=== PATIENT | female | born 1950 | race Caucasian/White ===

== ENCOUNTER 2019-04-06 23:23 | Inpatient (IN) | payer MEDICARE ==
[2019-04-07 00:17] LABS: #Lymphocytes 0.7 thou/uL (1.20-3.40); #Monocytes 0.8 thou/uL (0.11-0.59); #Neutrophils 10.9 thou/uL (1.40-6.50); %Basophils 0.4 % (0.0-1.0); %Eosinophils 0.2 % (0.0-10.0); %Lymphocytes 5.7 % (21.0-51.0); %Neutrophils 87.7 % (42.0-75.0); Hemoglobin 14.9 g/dL (12.0-16.0); Mean Corpuscular HGB CONC 31.8 g/dL (32.0-36.0); Mean Corpuscular Hemoglobin 30.1 pg (27.0-31.0); Mean Corpuscular Volume 94.6 fL (78.0-98.0); Mean Platelet Volume 8.9 fL (7.4-10.4); Platelet Count 223 thou/uL (130-400); RBC Distribution Width 13.7 % (11.5-14.5); Red Blood Cell (RBC) Count 4.96 mill/uL (4.20-5.40); White Blood Cell (WBC) Count 12.5 thou/uL (4.8-10.8)
[2019-04-07 00:48] LABS: ALT (SGPT) 18 U/L (8-55); AST (SGOT) 26 U/L (5-34); Albumin 4.7 g/dL (3.4-4.8); Alkaline Phosphatase 125 U/L (40-150); Anion Gap 29 mmol/L (10-20); BUN (Urea Nitrogen) 36 mg/dL (9.8-20.1); Bilirubin, Total 0.6 mg/dL (0.2-1.2); Calc. Creatinine Clearance 0 mL/min (70-130); Carbon Dioxide 17 mmol/L (23-31); Chloride 85 mmol/L (98-107); Estimated GFR-MDRD 27; Globulin 3.4 g/dL (2.4-3.5); Lipase 7 U/L (8-78); Magnesium 2.5 mg/dL (1.6-2.6); Phosphorus 6.7 mg/dL (2.3-4.7); Potassium 5.4 mmol/L (3.5-5.1); Protein, Total 8.1 g/dL (6.0-8.3); Sodium 126 mmol/L (136-145)
[2019-04-07 00:57] LABS: Glucose 753 mg/dL (80-115)
[2019-04-07] MEDS ORDERED: Ondansetron PF 4 MG/2 ML Vial ONE (01:03)
[2019-04-07 01:11] LABS: Base Excess-Venous -7.2 mmol/L (-2.0 to 3.0); Bicarbonate (HCO3v) 19.6 mmol/L (22.0-28.0); Calcium, Ionized 1.05 mmol/L (See Comments:); Chloride 93 mmol/L (98-107); Hemoglobin - Calc 17.2 g/dL (12.0-16.0); O2 Tension (PvO2) 50.7 mmHg (35.0-45.0); Potassium 4.9 mmol/L (3.5-5.1); Sodium 124 mmol/L (138-145); T. Carbon Dioxide 20.9 mmol/L (22.0-28.0); pH (Venous) 7.267 (7.320-7.430); vO2 Saturation-calc 80.2 % (60.0-85.0)
[2019-04-07] MEDS ORDERED: Insulin Regular 300 UNITS/3 ML VIAL ONE (01:18)
[2019-04-07 02:01] LABS: Bilirubin Negative (Negative); Blood, Urine Negative (Negative); Clarity CLEAR (Clear); Glucose, Urine (Dipstick) >=1000 mg/dL (Negative); Leukocyte Negative (Negative); Nitrite Negative (Negative); Protein, Urine (Dipstick) Negative (Neg-Trace); Urobilinogen 0.2 mg/dL (0.2-1.0); pH, Urine 5.5 (5.0-9.0)
[2019-04-07] MEDS ORDERED: Ondansetron PF 4 MG/2 ML Vial IVP PRN (02:25)
[2019-04-07] MEDS ORDERED: D5 1/2 NS w/20 mEq KCL 1,000 ML IV PRN (02:25)
[2019-04-07] MEDS ORDERED: CCU Electrolyte Replacement 1 EACH IVPB SCH (02:25)
[2019-04-07] MEDS ORDERED: Ondansetron ODT 4 MG TAB PO PRN (02:25)
[2019-04-07] MEDS ORDERED: Acetaminophen 325 MG TAB PO PRN (02:25)
[2019-04-07] MEDS ORDERED: Dextrose 5 %-0.45 % NaCl 1,000 ML IV PRN (02:25)
[2019-04-07] MEDS ORDERED: Sodium Chloride 0.9% 1,000 ML IV PRN ×4 (02:25)
[2019-04-07] MEDS ORDERED: Acetaminophen 650 MG Suppository PR PRN (02:25)
[2019-04-07] MEDS ORDERED: NS 0.9% w/ 20 MEQ KCL 1,000 ML IV PRN (02:25)
[2019-04-07] MEDS ORDERED: HUMULIN R 100 UNITS in Sodium Chloride 0.9% 100 ML IVPB SCH (02:30)
[2019-04-07] MEDS ORDERED: Magnesium 2 GM/50 ML 2 GM in Premix Bag 1 BAG IVPB PRN (02:47)
[2019-04-07] MEDS ORDERED: Potassium Chloride 40 MEQ in Premix Bag 1 BAG IVPB PRN (02:47)
[2019-04-07] MEDS ORDERED: Potassium Phosphate 9 MMOL in Sodium Chloride 0.9% 100 ML IVPB PRN (02:47)
[2019-04-07] MEDS ORDERED: PHOS-NAK 1 PKT PACK PO PRN ×2 (02:47)
[2019-04-07] MEDS ORDERED: Potassium Chloride 20 MEQ TAB PO PRN (02:47)
[2019-04-07] MEDS ORDERED: Potassium Chloride 40 MEQ in Sodium Chloride 0.9% 250 ML 250 ML IVPB PRN (02:47)
[2019-04-07] MEDS ORDERED: Potassium Phosphate 15 MMOL in Sodium Chloride 0.9% 250 ML 250 ML IV PRN (02:47)
[2019-04-07] MEDS ORDERED: Magnesium Oxide 400 MG TAB PO PRN ×2 (02:47)
[2019-04-07] MEDS ORDERED: CCU ELECTROLYTE REPLACEMENT PROTOCOL FS PRN (02:47)
[2019-04-07] MEDS ORDERED: Potassium Phosphate 12 MMOL in Sodium Chloride 0.9% 250 ML 250 ML IV PRN (02:47)
[2019-04-07 03:24] VITALS: BMI 30.7
[2019-04-07 03:29] LABS: Anion Gap 23 mmol/L (10-20); BUN (Urea Nitrogen) 36 mg/dL (9.8-20.1); Calc. Creatinine Clearance 46 mL/min (70-130); Calcium 9.5 mg/dL (7.8-10.44); Carbon Dioxide 17 mmol/L (23-31); Chloride 94 mmol/L (98-107); Estimated GFR-MDRD 34; Potassium 4.1 mmol/L (3.5-5.1); Sodium 130 mmol/L (136-145)
[2019-04-07 03:33] LABS: Glucose 590 mg/dL (80-115)
[2019-04-07 03:51] VITALS: BP 108/52
[2019-04-07 03:53] LABS: Troponin I Less than 0.010 ng/mL (< 0.028)
[2019-04-07] MEDS: NS 0.9% w/ 20 MEQ KCL 1,000 ML IV PRN ×2 (04:00→06:10)
--- NOTE | 2019-04-07 04:19 | HP ---
PRIMARY CARE DOCTOR: None reported. CODE STATUS: Full code. TIME OF EVALUATION: 2:00 a.m. CHIEF COMPLAINT: Shortness of breath, polyuria, and polydipsia. HISTORY OF PRESENT ILLNESS: This is a 68-year-old female patient with past medical history of diabetes, came to the hospital after having severe gradually worsening polyuria, polydipsia, and shortness of breath, and some abdominal pain associated with some change in mental status. No clear triggers, no alleviating factors. The patient reported that she felt like the blood sugar was getting uncontrolled and for that reason she came to the hospital. REVIEW OF SYSTEMS: CONSTITUTIONAL: No fever or chills. The patient has generalized weakness. RESPIRATORY: The patient has no cough. She reported no sputum production. She reported shortness of breath. CARDIOVASCULAR: No chest pain palpitation. GASTROINTESTINAL: No nausea, vomiting, diarrhea, or abdominal pain. CENTRAL NERVOUS SYSTEM: No dizziness, headache or feeling lightheaded. GENITOURINARY: No burning on urination. EXTREMITIES: No leg swelling. All other systems were reviewed and negative except for the findings mentioned above. PAST MEDICAL HISTORY: Positive for diabetes, bilateral breast cancer, hypothyroidism. PAST SURGICAL HISTORY: Bilateral mastectomy, bilateral cataracts. PSYCHIATRIC HISTORY: No previous psych history. SOCIAL HISTORY: Former alcoholic, quit 3 years ago. Abuse marijuana. Currently smokes cigarettes on a daily basis. Lives at home. FAMILY HISTORY: Reviewed, noncontributory to current presentation. KNOWN ALLERGIES: No known drug allergies reported. MEDICATIONS: Unable to obtain. The patient is on insulin pump. PHYSICAL EXAMINATION: VITAL SIGNS: On presentation, blood pressure 131/61, heart rate 113, respiratory rate was 20, temperature 97.8, oxygen saturation was 97% on room air. GENERAL APPEARANCE: The patient is alert, oriented, not in acute distress. HEENT: Eyes; normal conjunctivae. Moist oral mucosa. Anicteric. NECK: No JVD. RESPIRATORY: Bilateral air entry. No rales. No wheezes. Symmetric expansion. CARDIOVASCULAR: The patient is tachycardic. Regular rhythm. No murmurs. No gallops. No edema. ABDOMEN: Soft. Normal bowel sounds. MUSCULOSKELETAL: Baseline range of motion and strength. No tenderness. SKIN: Warm and intact. No pallor. No rash. No redness. Peripheral pulses are present. Capillary refill seems to be intact. NEURO: No evidence of any new focal weakness. Cranial nerves seems to be intact. PSYCH: The patient is in good mood. No anxiety. Suboptimal judgment, seems to be mildly confused. DIAGNOSTIC STUDIES: EKG was reviewed. The patient has sinus tachycardia at the rate of 102, VA 150, QRS 90, QT corrected 463. LABORATORY DATA: Reviewed. The patient has white count 12.5, hemoglobin 14.9, MCV 94.6, platelet count 223. VBG was done; the pH was 7.26. Chemistry; sodium 136, potassium 5.4, chloride 85, carbon dioxide 17, anion gap 29, BUN 36, creatinine 1.85, GFR 27, glucose 753, calcium 11, phosphorus 6.7, magnesium 2.5, total bilirubin 0.6, AST 26, ALT 18, alkaline phosphatase 125. Troponin was negative. Serum total protein 9.1, albumin 4.7, globulin 3.4, albumin-globulin ratio is 1.,4 lipase 7. Urine was done and was negative. Beta-hydroxybutyrate was 4.98. ASSESSMENT AND PLAN: The patient will be placed in the hospital with following medical problems: 1. Diabetic ketoacidosis; the patient has reportedly insulin pump, but was not working properly, so the patient went into diabetic ketoacidosis. Patient on diabetic ketoacidosis protocol. Placed in IMCU. 2. Acute kidney injury. Creatinine 1.85 likely secondary to dehydration from uncontrolled diabetes. We will hydrate accordingly. We will monitor kidney function. 3. Hypertonic hyponatremia. The corrected sodium is normal. This is secondary to diabetic ketoacidosis. We will treat underlying condition. 4. Hyperkalemia. The patient has potassium 5.4. This is secondary to acidosis. We will treat diabetic ketoacidosis. 5. Leukocytosis, white count 12.5, we will monitor. No evidence of any infection at this point. 6. Hypothyroidism, continue hormone replacement. 7. Deep venous thrombosis prophylaxis. Job ID: [id number]
[2019-04-07 07:37] LABS: Anion Gap 13 mmol/L (10-20); BUN (Urea Nitrogen) 31 mg/dL (9.8-20.1); Calc. Creatinine Clearance 58 mL/min (70-130); Calcium 8.7 mg/dL (7.8-10.44); Carbon Dioxide 21 mmol/L (23-31); Chloride 103 mmol/L (98-107); Estimated GFR-MDRD 44; Glucose 283 mg/dL (80-115); Potassium 3.8 mmol/L (3.5-5.1); Sodium 133 mmol/L (136-145)
[2019-04-07 07:42] LABS: Troponin I Less than 0.010 ng/mL (< 0.028)
[2019-04-07] MEDS: Enoxaparin Sodium 30 MG/0.3 ML SYRINGE SC SCH (08:57)
[2019-04-07 10:55] LABS: #Basophils 0.1 thou/uL (0.0-0.2); #Lymphocytes 1.6 thou/uL (1.20-3.40); #Neutrophils 10.8 thou/uL (1.40-6.50); %Basophils 0.5 % (0.0-1.0); %Eosinophils 0.3 % (0.0-10.0); %Lymphocytes 11.9 % (21.0-51.0); %Monocytes 7.1 % (0.0-10.0); %Neutrophils 80.1 % (42.0-75.0); Hemoglobin 12.2 g/dL (12.0-16.0); Mean Corpuscular HGB CONC 33.3 g/dL (32.0-36.0); Mean Corpuscular Hemoglobin 30.1 pg (27.0-31.0); Mean Corpuscular Volume 90.2 fL (78.0-98.0); Platelet Count 201 thou/uL (130-400); RBC Distribution Width 13.5 % (11.5-14.5); Red Blood Cell (RBC) Count 4.07 mill/uL (4.20-5.40); White Blood Cell (WBC) Count 13.5 thou/uL (4.8-10.8)
[2019-04-07 11:09] LABS: Anion Gap 11 mmol/L (10-20); BUN (Urea Nitrogen) 27 mg/dL (9.8-20.1); Calc. Creatinine Clearance 65 mL/min (70-130); Calcium 8.4 mg/dL (7.8-10.44); Carbon Dioxide 22 mmol/L (23-31); Chloride 106 mmol/L (98-107); Estimated GFR-MDRD 49; Glucose 173 mg/dL (80-115); Sodium 135 mmol/L (136-145)
[2019-04-07] MEDS ORDERED: Dextrose 50% Abboject 50 ML SYRINGE SLOW IVP PRN (12:41)
[2019-04-07] MEDS ORDERED: Dextrose 5% in Water 1,000 ML IV PRN (12:41)
[2019-04-07] MEDS ORDERED: HumaLOG 300 UNITS/3 ML VIAL SC PRN (12:41)
[2019-04-07] MEDS ORDERED: Insulin Glargine 20 UNITS in Pre-Filled Syringe 1 EACH SC SCH (12:45)
--- NOTE | 2019-04-07 13:09 | RAD ---
EXAM: Single view of the chest HISTORY: Cough COMPARISON: None FINDINGS: Single view of the chest shows a normal sized cardiomediastinal silhouette. Atelectasis is seen in both lung bases, right greater than left. There is no evidence of consolidation, mass, or pleural effusion. The bones are unremarkable. IMPRESSION: Bibasilar atelectasis
--- NOTE | 2019-04-07 13:22 | CON ---
DATE OF CONSULTATION: 04/07/2019 SERVICE: Pulmonary Medicine. REASON FOR CONSULTATION: [facility] patient. HISTORY OF PRESENT ILLNESS: The patient is a pleasant 68-year-old white female with past medical history significant for type 1 diabetes mellitus. She was in her usual state of health when she had malfunction of her pump. Within 6 hours, she started having a little bit of increasing nausea and vomiting. She had some abdominal discomfort, which persisted for about a day and a half before she presented to the emergency department. She was discovered to be in mild DKA. She denies any current fevers, chills, cough, sputum production, nausea, or vomiting. Otherwise, she was in her usual state of health before this event occurred. PAST MEDICAL HISTORY: 1. Type 1 diabetes mellitus. 2. Hypothyroidism. 3. History of breast cancer. PAST SURGICAL HISTORY: 1. Cataract surgery, bilateral. 2. Mastectomy, bilateral. SOCIAL HISTORY: She has a remote history of alcohol abuse and quit over 3 years ago. She uses marijuana. She has a greater than [id number] history of smoking. Currently, she lives at home. FAMILY HISTORY: Noncontributory. ALLERGIES: NO KNOWN DRUG ALLERGIES. MEDICATIONS: List of her inpatient medications was reviewed. Multiple updates were made. REVIEW OF SYSTEMS: General; head, ears, eyes, nose, throat; cardiovascular; respiratory; GI; ; musculoskeletal; neurologic; and skin are negative except as mentioned in the HPI. PHYSICAL EXAMINATION: VITAL SIGNS: Afebrile, pulse 102, blood pressure 96/36, respirations 16, and saturation is 94% on room air. GENERAL: The patient is awake and alert. No apparent distress. LUNGS: Excellent air entry. There is minimally prolonged expiratory phase without wheezing. Rhonchi are present, but clear with cough. No crackles. HEART: Normal rate and regular. ABDOMEN: Soft, nontender, and nondistended. Bowel sounds are positive. MUSCULOSKELETAL: No cyanosis or clubbing. No pitting in the bilateral lower extremities. NEUROLOGIC: Grossly nonfocal. LABORATORY DATA: WBC 13.5, hemoglobin 12.2, platelets 201,000. A pH 7.3, pCO2 of 43, pO2 of 51. Creatinine 1.11 and gently downtrending, BUN 27. Basic metabolic profile is otherwise unremarkable. Troponins negative x3. Beta-hydroxybutyric acid is 5. Urinalysis is positive for glycosuria and ketonuria, but no proteins are present. Bicarb has returned to the normal range, and her anion gap is close to 11. ASSESSMENT: 1. Diabetic ketoacidosis. 2. Type 1 diabetes. 3. Equipment malfunction. DISCUSSION AND PLAN: I will give the patient a subcu dose of Lantus. We will give her 3 units of rapid acting insulin pre-meal. We will also give her sliding scale pre-meal and at bedtime. She is stable for transition out of the IM to the medical unit. When she arrives here, she will have no further requirement for Pulmonary or Critical Care opinion, and I will sign off. Please call with additional questions or concerns through time. 70 minutes have been devoted to this patient in various activities. I personally reviewed all imaging studies and laboratory data noted within this document. For fifty percent of this time, I was interacting with the patient at the bedside or coordinating care with the care team. For the remainder of the time I was immediately available to the patient in the hospital unit. Job ID: [id number] MTDD
--- NOTE | 2019-04-07 14:02 | PDOC.PN ---
- Subjective Encounter Start Date: 04/07/19 Encounter Start Time: 14:00 Subjective: f/u for DKA on insulin gtt now with stabilizing glucose trend. 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 - Objective Resuscitation Status - Order Detail: 04/07/19 02:25 Resuscitation Status Routine Resuscitation Status: FULL: Full Resuscitation MAR Reviewed: Yes Vital Signs & Weight: Vital Signs (12 hours) Temp Pulse Resp BP Pulse Ox 04/07/19 11:23 97.9 F 04/07/19 07:17 97.9 F 04/07/19 04:00 95 04/07/19 03:05 98.4 F 101 H 17 108/52 L 95 Weight Weight 184 lb Most Recent Monitor Data Heart Rate from ECG 97 NIBP 91/37 NIBP BP-Mean 55 Respiration from ECG 17 SpO2 90 I&O: 04/06/19 04/07/19 04/08/19 06:59 06:59 06:59 Intake Total 2240 2526 Output Total 150 550 Balance 2089 1975 Result Diagrams: 04/07/19 10:42 04/07/19 10:42 Additional Labs: Accuchecks 04/07/19 04/07/19 04/07/19 13:08 12:02 11:07 POC Glucose 239 H 147 H 156 H 04/07/19 04/07/19 04/07/19 10:04 08:59 08:14 POC Glucose 170 H 179 H 191 H 04/07/19 04/07/19 04/07/19 07:20 06:09 05:09 POC Glucose 251 H 289 H 358 H 04/07/19 04:05 POC Glucose 504 H Laboratory Tests 04/07/19 04/07/19 04/07/19 00:04 00:04 00:04 WBC 12.5 H POC VBG pH Potassium 5.4 H Creatinine 1.85 H Urine Glucose (UA) Urine Ketones B-Hydroxybutyrate 4.98 H 04/07/19 04/07/19 04/07/19 01:10 01:39 02:57 WBC POC VBG pH 7.267 L Potassium 4.1 Creatinine 1.53 H Urine Glucose (UA) >=1000 H Urine Ketones 40 H B-Hydroxybutyrate 04/07/19 06:39 WBC POC VBG pH Potassium 3.8 Creatinine 1.23 H Urine Glucose (UA) Urine Ketones B-Hydroxybutyrate Radiology Reviewed by me: Yes (PCXR - bibasilar atelectasis) EKG Reviewed by me: Yes (Tele - sinus tach in low-100's) Phys Exam - Physical Examination Constitutional: NAD HEENT: PERRLA, sclera anicteric, oral pharynx no lesions Neck: no nodes, no JVD, supple, full ROM Respiratory: no wheezing, no rales, no rhonchi, clear to auscultation bilateral tachycardic S1, S2 Cardiovascular: no significant murmur, no rub, gallop Gastrointestinal: soft, non-tender, no distention, positive bowel sounds Musculoskeletal: no edema, pulses present Neurological: non-focal, normal sensation, moves all 4 limbs Psychiatric: A&O x 3 Skin: normal turgor, cap refill <2 seconds Dx/Plan (1) DKA (diabetic ketoacidosis) Code(s): E11.10 - TYPE 2 DIABETES MELLITUS WITH KETOACIDOSIS WITHOUT COMA Status: Acute Qualifiers: Diabetes mellitus type: type 1 Comment: Continue DKA protocol, transition to subq Lantus, ISS (2) SCOTT (acute kidney injury) Code(s): N17.9 - ACUTE KIDNEY FAILURE, UNSPECIFIED Status: Acute Comment: Improved, continue IVF's, avoid nephrotoxic meds and limit contrast exposure (3) Acute hyponatremia Code(s): E87.1 - HYPO-OSMOLALITY AND HYPONATREMIA Status: Acute Comment: Improved, secondary to hyperglycemia (4) Hyperkalemia Code(s): E87.5 - HYPERKALEMIA Status: Acute Comment: Improved with correction of acidosis - Plan social media analyst, out of bed/ambulate, DVT proph w/SCDs Stable overall -: Continue IVF's -: Transition to Lantus 20u sc daily -: ISS, serial accuchecks -: AM lab: BMP, CBC * .
[2019-04-07] MEDS: HumaLOG 300 UNITS/3 ML VIAL SC SCH ×2 (17:11→21:13)
[2019-04-08 06:50] LABS: Eosinophils 2 % (0-10); Hemoglobin 13.1 g/dL (12.0-16.0); Lymphocytes 18 % (21-51); MDiff Complete? YES; Mean Corpuscular HGB CONC 33.1 g/dL (32.0-36.0); Mean Corpuscular Hemoglobin 30.5 pg (27.0-31.0); Mean Corpuscular Volume 92.1 fL (78.0-98.0); Mean Platelet Volume 7.8 fL (7.4-10.4); Monocytes 3 % (0-10); Neutrophil 72 % (42-75); Platelet Count 188 thou/uL (130-400); RBC Distribution Width 13.6 % (11.5-14.5); Reactive Lymphocytes 5 % (0-10); White Blood Cell (WBC) Count 10.2 thou/uL (4.8-10.8)
[2019-04-08] MEDS: HumaLOG 300 UNITS/3 ML VIAL SC SCH ×2 (06:53→11:06)
[2019-04-08] MEDS: HumaLOG 300 UNITS/3 ML VIAL SC PRN ×2 (06:54→11:09)
[2019-04-08 06:57] LABS: Anion Gap 10 mmol/L (10-20); BUN (Urea Nitrogen) 17 mg/dL (9.8-20.1); Calc. Creatinine Clearance 77 mL/min (70-130); Calcium 8.3 mg/dL (7.8-10.44); Carbon Dioxide 22 mmol/L (23-31); Chloride 107 mmol/L (98-107); Estimated GFR-MDRD 60; Glucose 230 mg/dL (80-115); Potassium 4.1 mmol/L (3.5-5.1); Sodium 135 mmol/L (136-145)
[2019-04-08 07:17] VITALS: TEMP 98.4
[2019-04-08] MEDS ORDERED: Insulin Glargine 20 UNITS in Pre-Filled Syringe 1 EACH SC SCH (09:00)
[2019-04-08] MEDS: Enoxaparin Sodium 30 MG/0.3 ML SYRINGE SC SCH (09:10)
--- NOTE | 2019-04-08 15:58 | DIS ---
DATE OF ADMISSION: 04/07/2019 DATE OF DISCHARGE: 04/08/2019 DISCHARGE DIAGNOSES: 1. Diabetic ketoacidosis, resolving. 2. Acute kidney injury, resolving. 3. Acute hyponatremia secondary to hyperglycemia, improved. 4. Hyperkalemia, resolved. 5. Hypothyroidism. CONSULTATIONS: Dr. Ennis with Pulmonology/Critical Care Service. PERTINENT LABORATORY AND X-RAY FINDINGS: Sodium ranged between 126 to 135, potassium ranged between 3.8 to 5.4, creatinine ranged between 0.93 to 1.85, estimated GFR ranged between 27 to 60, phosphorus 6.7, and magnesium 2.5. Lipase 7. CBC showed a white blood cell count ranging between 10.2 to 13.5. Venous blood gas, pH of 7.23. On 04/07/2019, urinalysis positive for glucose and ketones. Beta-hydroxybutyrate level 4.98. Portable chest x-ray dated 04/07/2019 showed bibasilar atelectasis without acute process. HOSPITAL COURSE: The patient was admitted to the intermediate care unit after initially presenting with diabetic ketoacidosis. The patient was placed on DKA protocol as well as aggressive IV fluid hydration and insulin infusion. The patient with longstanding treatment for diabetes with subcutaneous insulin pump, likely with malfunctioning catheter at the insertion site. The patient clinically improved in 24 hours with stabilization of glucose trend. The patient tolerated regular oral intake with stable vital signs. I have examined the patient at the time of discharge and discussed discharge instructions. The patient verbalizes understanding and in agreement and ready for discharge on 04/08/2019. DISCHARGE MEDICATIONS: 1. Lipitor 40 mg p.o. daily. 2. Aricept 10 mg p.o. q.a.m. 3. Novolin R with insulin pump. 4. Synthroid 200 mcg p.o. daily. FOLLOWUP: The patient may follow up with her primary care provider in the [place], [place] area after discharge. CONDITION ON DISCHARGE: Stable. ACTIVITY: Ad-edson. DIET: ADA. CODE STATUS: Full. DISPOSITION: To home on 04/08/2019. Job ID: [id number]
== END 2019-04-08 13:04 | disposition home or self-care (01) | DRG 638 ==
LOC: ERS 23:23 → IMCU/EMU 04-07 02:42
PROVIDERS: ADMIT Hospitalist; ATTEND Hospitalist
DX: E10.10 Type 1 diabetes mellitus with ketoacidosis without coma (principal); N17.9 Acute kidney failure, unspecified; E87.1 Hypo-osmolality and hyponatremia; E03.9 Hypothyroidism, unspecified; F17.210 Nicotine dependence, cigarettes, uncomplicated; E87.5 Hyperkalemia; D72.829 Elevated white blood cell count, unspecified; E10.65 Type 1 diabetes mellitus with hyperglycemia; Z79.4 Long term (current) use of insulin; Z85.3 Personal history of malignant neoplasm of breast; Z90.13 Acquired absence of bilateral breasts and nipples; Z98.42 Cataract extraction status, left eye; Z98.41 Cataract extraction status, right eye
CPT/HCPCS: 36415; 36416; 71045; 80048; 80053; 81003; 82010; 82330; 82803; 83690; 83735; 84100; 84484; 85007; 85025; 85027; 93005; 94760; J1650; J1815; J1825; J2405; J3480; J3490